=== PATIENT | female | born 1940 | race Caucasian/White ===

== ENCOUNTER 2016-12-28 14:09 | Emergency (ER) | payer OTHER ==
[~2016-12-28] VITALS: Ht 157.5 cm; Wt 75.0 kg
[~2016-12-28 14:09] MED LIST: B-COTAB41 PO; CARV6.25 PO; FLUO10TA PO; GLUCTAB PO; LEVO.025 PO; MAGN250T5 PO; MECL-62 PO; MORP1CAP63 PO; OMEP20TA OR; ONDA4 PO; OS-CTAB3 PO; PRAV80TA PO
[2016-12-28 14:11] VITALS: BP 137/65; PULSE 74; RESP 15; TEMP 98.2; O2SAT 98
--- NOTE | 2016-12-28 14:41 | PD ---
Physical Exam Time Seen by Provider: 14:37 Narrative 76yo F requesting needing to be stabilized on medications. [facility] to [facility] and was told they couldn't keep her because she needed oxygen and pain meds. Reports tripping and falling4 times in the last 4 days. Agustin hittign head, LOC. Hx of suicidal ideation, but denies currently. Left arm pain and L knee pain from fall. Denies fever, vomiting. Visitor w/ patient says she has a current kidney infection too. Patient stable. Patient seen in triage. Awaiting bed placement. Data Data Last Documented VS Vital Signs Date Time Temp Pulse Resp B/P Pulse Ox O2 Delivery O2 Flow Rate FiO2 12/28/16 14:11 98.2 74 15 137/65 98 MDM Supervised Visit with VERN: Jyoti Zelaya Dec 28, 2016 14:41
[2016-12-28 18:10] LABS: AUTOMATED NEUTROPHIL # 5.7 TH/MM3 (1.8-7.7); BASOPHIL # 0.1 TH/MM3 (0-0.2); EOSINOPHIL # 0.8 TH/MM3 (0-0.4); EOSINOPHIL % 8.3 % (0.0-4.0); HEMATOCRIT 34.1 % (35.0-46.0); HEMO FLAGS DIFF FINAL; LYMPH % 23.6 % (9.0-44.0); LYMPHOCYTE # 2.2 TH/MM3 (1.0-4.8); MEAN CELL VOLUME 85.7 FL (80.0-100.0); MEAN CORPUSCULAR HEMOGLOBIN 28.5 PG (27.0-34.0); MEAN CORPUSCULAR HGB CONC 33.3 % (32.0-36.0); MONO % 6.2 % (0.0-8.0); NEUT % 60.9 % (16.0-70.0); PLATELET COUNT 188 TH/MM3 (150-450); RED BLOOD COUNT 3.98 MIL/MM3 (4.00-5.30); RED CELL DISTRIBUTION WIDTH 14.6 % (11.6-17.2); WHITE BLOOD COUNT 9.3 TH/MM3 (4.0-11.0)
[2016-12-28 18:28] LABS: ANION GAP 10 MEQ/L (5-15); AST (GOT) 20 U/L (15-37); BICARBONATE 31.5 MEQ/L (21.0-32.0); BLOOD UREA NITROGEN 42 MG/DL (7-18); CHLORIDE 102 MEQ/L (98-107); GLOMERULAR FILTRATION RATE 31 ML/MIN (>89); POTASSIUM 3.3 MEQ/L (3.5-5.1); SODIUM (NA) 143 MEQ/L (136-145)
[2016-12-28 18:31] LABS: ALKALINE PHOSPHATASE 95 U/L (45-117); ALT (GPT) 22 U/L (10-53); TOTAL BILIRUBIN ADULT 0.4 MG/DL (0.2-1.0)
--- NOTE | 2016-12-28 18:59 | PD ---
HPI Chief Complaint: Psychiatric Symptoms Time Seen by Provider: 18:47 Travel History International Travel<30 days: No Contact w/Intl Traveler<30days: No Traveled to known affect area: No History of Present Illness HPI 76-year-old female that presents to the ED for evaluation of psych. Has a history of depression. Has been feeling suicidal with no plan for about two weeks. Was admitted at another facility for this about two weeks ago and was changed on some medications. Today she went to [facility] and they told her to come here for eval as she takes pain meds and need oxygen which apparently they cant help her with. She does tell me that she has chronic back problems for which she takes MS Contin and Klonopin. Patient also complains that she had a fall yesterday in which she hit her left knee and she fell a couple weeks ago on her left shoulder. He had a lot of pain in the area. Per patient she has not had any imaging for this areas. She denies any other medical prongs. No head injury or loss of consciousness. No bleeding. Allergies to beta ray, Mevacor, sulfa, Actonel. She states that her pain currently on the knee and the shoulder is 5 out of 10 but gets worse with movement. Does improve somewhat with her pain medications. She denies any nausea or vomiting. No bowel movement or urinary issues. She denies any drug abuse or alcohol abuse. Patient comes here with family member. Patient comes here voluntarily for psych evaluation. 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 ) AICD: No Appendectomy: Yes Cardiac Surgery: No Cholecystectomy: Yes Ear Surgery: No Eye Surgery: No Genitourinary Surgery: No Gynecologic Surgery: Yes (HYSTERECTOMY.) Hysterectomy: Yes Joint Replacement: No Oral Surgery: No Pacemaker: No Thoracic Surgery: No Other Surgery: Yes (BACK SX X2/GALLBLADDER/HYSTERECTOMY) Social History Alcohol Use: No Tobacco Use: No Substance Use: No Allergies-Medications (Allergen,Severity, Reaction): Coded Allergies: Beta Blockers (Verified Allergy, Severe, Anaphylaxis, 12/28/16) PATIENT ALLERGIC TO PREVIOUS UNKNOWN NAME OF A BETA RAY Mevacor (Verified Allergy, Severe, UNKNOWN, 12/28/16) Actonel (Verified Allergy, Intermediate, BONE PAIN, 12/28/16) Sulfa (Verified Allergy, Intermediate, HIVES, 12/28/16) Reported Meds & Prescriptions Reported Meds & Active Scripts Active Reported Zofran 4 Mg Tab (Ondansetron Hcl) 4 Mg Tab 4 Mg PO QID PRN Magnesium (Magnesium Oxide) 250 Mg Tab 250 Mg PO DAILY Meclizine Hcl (Meclizine HCl) 25 Mg Tab 25 Mg PO DAILY Fluoxetine (Fluoxetine HCl) 10 Mg Cap 20 Mg PO BID Morphine Sulfate ER (Morphine Sulfate) 30 Mg Cap 30 Mg PO DAILY Calcium 500/Vitamin D (Calcium/Vitamin D) Tab 1 Tab PO DAILY Pravachol 80 Mg Tab 80 Mg PO HS Glucophage XR 24 HR (Metformin HCl) 500 Mg Tab 1,000 Mg PO BIDAC Omeprazole 20 mg (Omeprazole) 20 Mg Tab 20 Mg OR DAILY Coreg 6.25 mg (Carvedilol) 6.25 Mg Tab 6.25 Mg PO BID Levothyroxine Sodium 25 Mcg Tab 50 Mcg PO DAILY Review of Systems Except as stated in HPI: all other systems reviewed are Neg Physical Exam Narrative GENERAL: SKIN: Warm and dry. HEAD: Atraumatic. Normocephalic. EYES: Pupils equal and round. No scleral icterus. No injection or drainage. ENT: No nasal bleeding or discharge. Mucous membranes pink and moist. Tongue is midline. No uvula deviation. NECK: Trachea midline. No JVD. CARDIOVASCULAR: Regular rate and rhythm. No murmurs, S3, S4. RESPIRATORY: No accessory muscle use. Clear to auscultation. Breath sounds equal bilaterally. GASTROINTESTINAL: Abdomen soft, non-tender, nondistended. Hepatic and splenic margins not palpable. MUSCULOSKELETAL: Extremities without clubbing, cyanosis, or edema. No obvious deformities. Full range of motion of all upper and lower extremities bilaterally. 2+ pulses bilaterally. Patient does have bruising and swelling noted on the left knee. Patient has bruising on the left shoulder and has pain with abduction. Able to move it fully except with abduction which she has pain from it. Neurovascular intact. NEUROLOGICAL: Awake and alert. No obvious cranial nerve deficits. Motor grossly within normal limits. Five out of 5 muscle strength in the arms and legs. Normal speech. PSYCHIATRIC: Appropriate mood and affect; insight and judgment normal. Data Data Last Documented VS Vital Signs Date Time Temp Pulse Resp B/P Pulse Ox O2 Delivery O2 Flow Rate FiO2 12/28/16 14:11 98.2 74 15 137/65 98 Orders Complete Blood Count With Diff (12/28/16 17:31) Comprehensive Metabolic Panel (12/28/16 17:31) Urinalysis - C+S If Indicated (12/28/16 17:31) Iv Access Insert/Monitor (12/28/16 17:31) Psych Screen (12/28/16 17:31) Drug Screen, Random Urine (12/28/16 17:31) Alcohol (Ethanol) (12/28/16 17:31) Knee, Complete (4vws) (12/28/16 17:54) Shoulder, Complete (>2vws) (12/28/16 17:54) Ice/Cold Pack (12/28/16 17:54) Splint Or Brace Apply/Monitor (12/28/16 17:54) Sling Cradle Arm (12/28/16 ) Labs Laboratory Tests Test 12/28/16 17:58 White Blood Count 9.3 TH/MM3 Red Blood Count 3.98 MIL/MM3 Hemoglobin 11.3 GM/DL Hematocrit 34.1 % Mean Corpuscular Volume 85.7 FL Mean Corpuscular Hemoglobin 28.5 PG Mean Corpuscular Hemoglobin 33.3 % Concent Red Cell Distribution Width 14.6 % Platelet Count 188 TH/MM3 Mean Platelet Volume 8.0 FL Neutrophils (%) (Auto) 60.9 % Lymphocytes (%) (Auto) 23.6 % Monocytes (%) (Auto) 6.2 % Eosinophils (%) (Auto) 8.3 % Basophils (%) (Auto) 1.0 % Neutrophils # (Auto) 5.7 TH/MM3 Lymphocytes # (Auto) 2.2 TH/MM3 Monocytes # (Auto) 0.6 TH/MM3 Eosinophils # (Auto) 0.8 TH/MM3 Basophils # (Auto) 0.1 TH/MM3 CBC Comment DIFF FINAL Differential Comment Sodium Level 143 MEQ/L Potassium Level 3.3 MEQ/L Chloride Level 102 MEQ/L Carbon Dioxide Level 31.5 MEQ/L Anion Gap 10 MEQ/L Blood Urea Nitrogen 42 MG/DL Creatinine 1.61 MG/DL Estimat Glomerular Filtration 31 ML/MIN Rate Random Glucose 103 MG/DL Calcium Level 8.9 MG/DL Total Bilirubin 0.4 MG/DL Aspartate Amino Transf 20 U/L (AST/SGOT) Alanine Aminotransferase 22 U/L (ALT/SGPT) Alkaline Phosphatase 95 U/L Total Protein 7.4 GM/DL Albumin 3.6 GM/DL Ethyl Alcohol Level LESS THAN 3 MG/DL MDM Medical Decision Making Medical Screen Exam Complete: Yes Emergency Medical Condition: Yes Medical Record Reviewed: Yes Interpretation(s) CBC & BMP Diagram 12/28/16 17:58 LFTs WNL alcohol negative xray of the left shoulder negative xray of the left knee negative for acute disease Differential Diagnosis Depression versus suicidal ideation versus anxiety versus adjustment disorder versus mood disorder versus bipolar disorder versus schizophrenia versus paranoid disorder versus psychosis versus substance abuse versus alcohol abuse versus alcohol induced psychosis versus homicidality addition versus cutting versus personality disorder versus contusion versus fracture Narrative Course 76-year-old female that presents to the ED for evaluation of psych. Patient was properly examined and was found to have signs and symptoms consistent with psychiatric illness. No sign of acute medical distress. Labs and imaging ordered. Labs and imaging essentially unremarkable. This time patient will be medically clear. Okay to be seen by psych. Mental health screening was discussed with the patient. 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
--- NOTE | 2016-12-28 19:00 | RADRPT ---
EXAM DATE/TIME: 12/28/2016 18:09 [facility] COMPARISON: No previous studies available for comparison. INDICATIONS : Left shoulder pain after fall this morning. MEDICAL HISTORY : None. SURGICAL HISTORY : None. ENCOUNTER: Initial ACUITY: 1 day PAIN SCORE: 9/10 LOCATION: Left shoulder. FINDINGS: No definite fractures, or dislocations are identified. No definite lytic or sclerotic lesion is seen . CONCLUSION: Unremarkable study. Lurdes Interiano MD on December 28, 2016 at 18:58 Board Certified Radiologist. This report was verified electronically.
--- NOTE | 2016-12-28 19:03 | RADRPT ---
EXAM DATE/TIME: 12/28/2016 18:15 [facility] COMPARISON: No previous studies available for comparison. INDICATIONS : Left anterior knee pain after fall this morning. MEDICAL HISTORY : None. SURGICAL HISTORY : None. ENCOUNTER: Initial ACUITY: 1 day PAIN SCORE: 7/10 LOCATION: Left knee. FINDINGS: No definite fractures, or dislocations are identified. No definite lytic or sclerotic lesion is seen . Slight osteopenia is seen. The joint spaces are well maintained. CONCLUSION: Slight osteopenia. Lurdes Interiano MD on December 28, 2016 at 19:00 Board Certified Radiologist. This report was verified electronically.
[2016-12-28 19:13] LABS: BLOOD, URINE NEG (NEG); COMMENT (UR) CULT NOT INDICATED; CULTURE IF INDICATED CULT NOT INDICATED; GLUCOSE,URINE NEG (NEG); HYALINE CAST, URINE 2 /lpf (RARE); KETONE, URINE NEG (NEG); NITRITE,URINE NEG (NEG); URINE COLOR YELLOW (YELLW/STRAW)
[2016-12-28 19:25] LABS: AMPHETAMINE, URINE NEG (NEG); BARBITURATES, URINE NEG (NEG); COCAINE, URINE NEG (NEG)
[2016-12-28 19:37] VITALS: BP 133/63; PULSE 95; RESP 18; O2SAT 95
[2016-12-28] MEDS ORDERED: MORPHINE SULFATE 4 MG/ML INJ IV PUSH ONE (20:45)
[2016-12-28] MEDS ORDERED: POTA595T PO (21:07)
[2016-12-28] MEDS ORDERED: AUGM875T PO (21:07)
[2016-12-28] MEDS ORDERED: FURO1TAB60 PO (21:07)
[2016-12-28] MEDS ORDERED: SYNT25TA PO (21:07)
[2016-12-28] MEDS ORDERED: GLUC1000 PO (21:07)
[2016-12-28] MEDS ORDERED: ATOR1TAB18 PO (21:07)
[2016-12-28] MEDS ORDERED: CYMB30CA PO (21:07)
[2016-12-28] MEDS ORDERED: NEUR300C PO (21:07)
[2016-12-28] MEDS ORDERED: BUPR100CR PO (21:07)
[2016-12-28] MEDS ORDERED: [UNRECOGNIZED DRUG - CODE] PO (21:07)
[2016-12-28] MEDS ORDERED: VITA500T PO (21:07)
[2016-12-28] MEDS ORDERED: CYAN1CAP PO (21:07)
[2016-12-28] MEDS ORDERED: PRIL20CA9 PO (21:07)
[2016-12-28] MEDS ORDERED: CALTTAB PO (21:07)
[2016-12-28] MEDS ORDERED: OSCA200T PO (21:07)
[2016-12-29] MEDS ORDERED: BUPR100CR PO (02:10)
[2016-12-29 09:04] VITALS: BP 134/88; PULSE 86; RESP 16; O2SAT 99
[2016-12-29 17:18] VITALS: BP 148/76; PULSE 72; RESP 16; O2SAT 98
== END 2016-12-29 21:42 | disposition home or self-care (01) ==
LOC: NEPC 14:09
DX: F32.9 Major depressive disorder, single episode, unspecified (principal); S80.00XA Contusion of unspecified knee, initial encounter; M25.512 Pain in left shoulder; I50.9 Heart failure, unspecified; J44.9 Chronic obstructive pulmonary disease, unspecified; E78.00 Pure hypercholesterolemia, unspecified; E11.9 Type 2 diabetes mellitus without complications; H91.91 Unspecified hearing loss, right ear; I10 Essential (primary) hypertension; Z87.442 Personal history of urinary calculi; F31.9 Bipolar disorder, unspecified; E03.9 Hypothyroidism, unspecified; W19.XXXA Unspecified fall, initial encounter; Y93.9 Activity, unspecified; Y92.9 Unspecified place or not applicable
CPT/HCPCS: 73030; 73564; 80053; 80307; 81001; 85025; 96374; 99284; J2270

== ENCOUNTER 2017-01-18 17:13 | Emergency (ER) | payer OTHER ==
[~2017-01-18] VITALS: Ht 157.5 cm; Wt 71.0 kg
[~2017-01-18 17:13] MED LIST changes: +ATOR1TAB18 PO; +AUGM875T PO; -B-COTAB41 PO; +BUPR100CR PO; +CALTTAB PO; -CARV6.25 PO; +CYAN1CAP PO; +CYMB30CA PO; -FLUO10TA PO; +FURO1TAB60 PO; +GLUC1000 PO; -GLUCTAB PO; -LEVO.025 PO; -MAGN250T5 PO; -MECL-62 PO; -MORP1CAP63 PO; +NEUR300C PO; -OMEP20TA OR; -ONDA4 PO; -OS-CTAB3 PO; +OSCA200T PO; +POTA595T PO; -PRAV80TA PO; +PRIL20CA9 PO; +SYNT25TA PO; +VITA500T PO; +[UNRECOGNIZED DRUG - CODE] PO
[2017-01-18 18:56] VITALS: BP 129/77; PULSE 96; TEMP 98.3; O2SAT 96
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
[2017-01-18 21:24] LABS: AUTOMATED NEUTROPHIL # 5.4 TH/MM3 (1.8-7.7); BASOPHIL # 0.1 TH/MM3 (0-0.2); EOSINOPHIL # 0.1 TH/MM3 (0-0.4); EOSINOPHIL % 1.7 % (0.0-4.0); HEMATOCRIT 37.6 % (35.0-46.0); HEMO FLAGS DIFF FINAL; LYMPH % 30.3 % (9.0-44.0); LYMPHOCYTE # 2.6 TH/MM3 (1.0-4.8); MEAN CELL VOLUME 83.5 FL (80.0-100.0); MEAN CORPUSCULAR HEMOGLOBIN 28.3 PG (27.0-34.0); MEAN CORPUSCULAR HGB CONC 33.9 % (32.0-36.0); MONO % 5.4 % (0.0-8.0); NEUT % 61.6 % (16.0-70.0); PLATELET COUNT 304 TH/MM3 (150-450); RED CELL DISTRIBUTION WIDTH 14.2 % (11.6-17.2); WHITE BLOOD COUNT 8.7 TH/MM3 (4.0-11.0)
[2017-01-18 21:29] LABS: AMPHETAMINE, URINE NEG (NEG); BARBITURATES, URINE NEG (NEG); COCAINE, URINE NEG (NEG)
[2017-01-18 21:38] LABS: ANION GAP 11 MEQ/L (5-15); AST (GOT) 26 U/L (15-37); BLOOD UREA NITROGEN 27 MG/DL (7-18); CHLORIDE 98 MEQ/L (98-107); GLOMERULAR FILTRATION RATE 39 ML/MIN (>89); POTASSIUM 3.5 MEQ/L (3.5-5.1); SODIUM (NA) 139 MEQ/L (136-145)
[2017-01-18 21:41] LABS: ALKALINE PHOSPHATASE 119 U/L (45-117); ALT (GPT) 22 U/L (10-53); TOTAL BILIRUBIN ADULT 0.8 MG/DL (0.2-1.0)
[2017-01-18 23:00] VITALS: BP 134/78; PULSE 89; RESP 18; O2SAT 97
[2017-01-19 02:00] VITALS: BP 138/72; PULSE 84; RESP 18; O2SAT 95
[2017-01-19 05:00] VITALS: BP 129/68; PULSE 88; RESP 18; O2SAT 96
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
== END 2017-01-19 10:06 | disposition home or self-care (01) ==
LOC: NEDAMB 17:13 → NEPD 01-19 10:06
DX: F43.23 Adjustment disorder with mixed anxiety and depressed mood (principal); J44.9 Chronic obstructive pulmonary disease, unspecified; E11.9 Type 2 diabetes mellitus without complications; I10 Essential (primary) hypertension
CPT/HCPCS: 80053; 80307; 85025; 99284